=== PATIENT | male | born 1970 | race Caucasian/White ===

== ENCOUNTER 2019-04-11 11:46 | Emergency (ER) | payer OTHER ==
[~2019-04-11] VITALS: Ht 177.8 cm; Wt 85.7 kg
[2019-04-11 11:54] VITALS: BP 123/79; Ht 177.8 cm; Wt 85.7 kg
== END 2019-04-11 14:28 | disposition home or self-care (01) ==
LOC: ED 11:46
DX: L03.115 Cellulitis of right lower limb (principal); F17.210 Nicotine dependence, cigarettes, uncomplicated; Z98.890 Other specified postprocedural states
CPT/HCPCS: 99406